=== PATIENT | female | born 1950 | race Caucasian/White ===

== ENCOUNTER 2022-01-08 07:36 | Day surgery (SDC) | payer OTHER, MEDICAID, SELFPAY ==
[~2022-01-08] VITALS: Ht 152.4 cm; Wt 65.8 kg
[2022-01-08 11:17] VITALS: BP_SYST 158
[2022-01-08] MEDS ORDERED: ARTICAINE HCL/EPINEPHRINE 4%/1:200,000 BIT 1.7 ML CARTRIDGE IJ ONE (14:30)
[2022-01-08] MEDS ORDERED: NS 250 ML BAG IV ONE (14:30)
[2022-01-08] MEDS ORDERED: NS IRRIG SOLN 1000 ML IR ONE (14:30)
== END 2022-01-08 10:20 | disposition home or self-care (01) ==
LOC: SDS 07:36 → SMU 07:56 → SDS 10:20
PROVIDERS: ATTEND Dentist General Practice
DX: M27.2 Inflammatory conditions of jaws (principal); I10 Essential (primary) hypertension; E78.5 Hyperlipidemia, unspecified; E11.9 Type 2 diabetes mellitus without complications; F32.9 Major depressive disorder, single episode, unspecified; Z88.0 Allergy status to penicillin; Z79.899 Other long term (current) drug therapy; Z20.822 Contact with and (suspected) exposure to COVID-19
CPT/HCPCS: 21025; 21215; 21248; 36415; 70140; 82962; 87426; C1713 ×2; J7050